=== PATIENT | male | born 1955 | race Caucasian/White ===

== ENCOUNTER 2021-09-17 23:38 | Emergency (ER) | payer BC, OTHER ==
[~2021-09-17] VITALS: Ht 182.9 cm; Wt 122.3 kg
[2021-09-18 01:24] LABS: COLOR,URINE YELLOW (Yellow); GLUCOSE, URINE NEGATIVE (Neg); KETONES,URINE TRACE mg/dl (Neg); LEUKOCYTE ESTERASE ,URINE NEGATIVE (Neg); NITRITES, URINE NEGATIVE (Neg); OCCULT BLOOD,URINE LARGE (Neg); PROTEIN,URINE NEGATIVE (Neg); UROBILINOGEN,URINE 0.2 E.U/dL (0.2-1.0)
[2021-09-18 01:34] LABS: CLARITY,URINE SLIGHTLY CLOUDY (Clear); UA COLLECTION TYPE CLN CATCH MIDSTREAM
[2021-09-18 01:35] LABS: BACTERIA,URINE FEW /HPF (Neg); RBC,URINE 20-50 /HPF (0-2); SQUAMOUS EPITHELIAL CELL,UR FEW /LPF (FEW); WBC,URINE 0-4 /HPF (0-4)
[2021-09-18 01:48] LABS: ALANINE AMINOTRANSFERASE 59 U/L (12-78); ALBUMIN 4.1 G/DL (3.4-5.0); ALBUMIN/GLOBULIN RATIO 1.2 (1.1-1.5); ALKALINE PHOSPHATASE 70 IU/L (46-116); ANION GAP 8 (8-16); ASPARTATE AMINO TRANSFERASE 28 U/L (10-37); BILIRUBIN,TOTAL 0.8 MG/DL (0.1-1.0); BLOOD UREA NITROGEN 23 MG/DL (7-18); BUN/CREATININE RATIO 22.1 (5.4-32.0); CHLORIDE 106 MMOL/L (99-107); CREATININE 1.04 MG/DL (0.60-1.10); GLUCOSE 114 MG/DL (70-104); LIPASE 128 U/L (73-393); SODIUM 139 MMOL/L (135-145); TOTAL PROTEIN 7.6 G/DL (6.4-8.2); eGFR 72 ML/MIN
[2021-09-18 01:52] LABS: BASOPHILS # (AUTO) 0.1 X10'3 (0-0.2); BASOPHILS % (AUTO) 0.8 % (0-1); EOSINOPHILS # (AUTO) 0.2 X10'3 (0-0.9); EOSINOPHILS % (AUTO) 1.7 % (0-6); HEMATOCRIT 44.4 % (42.0-52.0); HEMOGLOBIN 15.7 g/dl (14.0-17.9); LYMPHOCYTES # (AUTO) 1.8 X10'3 (1.1-4.8); LYMPHOCYTES % (AUTO) 17.6 % (21-51); MEAN CORPUSCULAR HEMOGLOBIN 32.8 PG (27.0-31.0); MEAN CORPUSCULAR HGB CONC 35.3 g/dL (33.0-36.5); MEAN PLATELET VOLUME 7.7 FL (7.4-10.4); MONOCYTES # (AUTO) 0.6 X10'3 (0-0.9); MONOCYTES % (AUTO) 5.8 % (2-12); NEUTROPHILS # (AUTO) 7.5 X10'3 (1.8-7.7); NEUTROPHILS % (AUTO) 74.1 % (42-75); PLATELET COUNT 247 X10'3 (140-440); RED BLOOD COUNT 4.78 X10'6 (4.70-6.10); RED CELL DISTRIBUTION WIDTH 13.2 % (11.5-14.5); WHITE BLOOD COUNT 10.2 X10'3 (4.5-11.0)
[2021-09-18 02:08] LABS: CALCIUM 9.2 MG/DL (8.5-10.1)
[2021-09-18] MEDS ORDERED: HYDR-3965 PO (02:26)
[2021-09-18 02:39] VITALS: BP 112/64
== END 2021-09-18 02:41 | disposition home or self-care (01) ==
LOC: ER 23:39
DX: N20.0 Calculus of kidney (principal); R10.84 Generalized abdominal pain; R11.2 Nausea with vomiting, unspecified; G89.29 Other chronic pain; Z88.5 Allergy status to narcotic agent; Z79.899 Other long term (current) drug therapy
CPT/HCPCS: 36415; 74176; 80053; 81001; 83690; 85025; 99284

== ENCOUNTER 2023-12-02 06:43 | Inpatient (IN) | payer MEDICARE ==
[~2023-12-02] VITALS: Ht 185.4 cm; Wt 90.0 kg
[2023-12-02] VITALS (19 sets, daily range): BP systolic 109–147; BP diastolic 51–82; PULSE 78–96; RESP 11–21; TEMP 97.1–99.7; O2SAT 92–100
[2023-12-02] MEDS ORDERED: dexamethasone 4mg tablet PO ONE (06:50)
[2023-12-02] MEDS ORDERED: naproxen 500mg tablet PO ONE (06:50)
[2023-12-02] MEDS ORDERED: diphenhydrAMINE 25mg capsule PO ONE (06:50)
[2023-12-02] MEDS ORDERED: sildenafil citrate 20mg tablet PO SCH (07:05)
[2023-12-02 07:16] LABS: BILIRUBIN,URINE NEGATIVE (Neg); COLOR,URINE YELLOW (Yellow); GLUCOSE, URINE NEGATIVE (Neg); KETONES,URINE 40 mg/dl (Neg); LEUKOCYTE ESTERASE ,URINE NEGATIVE (Neg); NITRITES, URINE NEGATIVE (Neg); OCCULT BLOOD,URINE MODERATE (Neg); PROTEIN,URINE 30 mg/dl (Neg); UROBILINOGEN,URINE 0.2 E.U/dL (0.2-1.0)
[2023-12-02 07:21] LABS: UA COLLECTION TYPE NON-SPECIFIED
[2023-12-02 07:24] LABS: CLARITY,URINE SLIGHTLY CLOUDY (Clear)
[2023-12-02 07:26] LABS: BACTERIA,URINE FEW /HPF (Neg); COARSE GRANULAR CAST 0-3 /LPF (NEGATIVE); HYALINE CASTS 0-3 /LPF (NEGATIVE); MUCUS STRANDS MANY /LPF (Neg); RBC,URINE 20-50 /HPF (0-2); SQUAMOUS EPITHELIAL CELL,UR FEW /LPF (FEW); WBC,URINE 0-4 /HPF (0-4)
[2023-12-02] MEDS: sildenafil citrate 20mg tablet PO ONE (07:34)
[2023-12-02] MEDS: meperidine/PF 25mg/ml syringe IV ONE (07:35)
[2023-12-02] MEDS: normal saline 1000ML IV soln IVB ONE (07:36)
[2023-12-02] MEDS: ondansetron/PF 4mg/2ml inj IV ONE (07:58)
[2023-12-02 08:11] LABS: ALBUMIN 4.6 G/DL (3.4-5.0); ANION GAP 17 (8-16); BLOOD UREA NITROGEN 19 MG/DL (7-18); BUN/CREATININE RATIO 14.8 (10.0-20.0); CALCIUM 10.1 MG/DL (8.5-10.1); CHLORIDE 100 MMOL/L (99-107); CREATININE 1.28 MG/DL (0.60-1.10); GLUCOSE 207 MG/DL (70-104); POTASSIUM 3.6 MMOL/L (3.5-5.1); SODIUM 136 MMOL/L (135-145); TOTAL CARBON DIOXIDE 18.8 MMOL/L (24-32); eCRCL 65 ML/MIN; eGFR 56 ML/MIN
[2023-12-02 08:12] LABS: BASOPHILS % (AUTO) 0.1 % (0-1); EOSINOPHILS % (AUTO) 0 % (0-6); HEMATOCRIT 45.2 % (42.0-52.0); HEMOGLOBIN 15.4 g/dl (14.0-17.9); LYMPHOCYTES # (AUTO) 0.9 X10'3 (1.1-4.8); LYMPHOCYTES % (AUTO) 5.6 % (21-51); MEAN CORPUSCULAR HEMOGLOBIN 31.4 PG (27.0-31.0); MEAN CORPUSCULAR HGB CONC 34.1 g/dL (33.0-36.5); MEAN CORPUSCULAR VOLUME 92.1 FL (78-98); MEAN PLATELET VOLUME 7.4 FL (7.4-10.4); MONOCYTES # (AUTO) 0.8 X10'3 (0-0.9); MONOCYTES % (AUTO) 5.3 % (2-12); PLATELET COUNT 300 X10'3 (140-440); RED CELL DISTRIBUTION WIDTH 13.3 % (11.5-14.5); WHITE BLOOD COUNT 15.7 X10'3 (4.5-11.0)
[2023-12-02] MEDS: meperidine/PF 50mg/ml syringe IV ONE (08:48)
[2023-12-02] MEDS ORDERED: ketorolac trometh. 30mg/ml inj. IV ONE (09:50)
[2023-12-02] MEDS ORDERED: ondansetron/PF 4mg/2ml inj IV PRN ×2 (09:50→12:45)
[2023-12-02] MEDS ORDERED: APIX5TAB3 PO (10:21)
[2023-12-02] MEDS ORDERED: GABA300C PO (10:21)
[2023-12-02] MEDS ORDERED: DULO30CA52 PO (10:21)
[2023-12-02] MEDS: normal saline 1000ml 1,000 ML IV SCH (10:54)
[2023-12-02] MEDS: morphine 2 MG/ML inj. syringe IV PRN (10:54)
[2023-12-02] MEDS ORDERED: morphine 4 MG/ML inj SYRINge IV PRN (12:45)
[2023-12-02] MEDS ORDERED: labetalol 20mg/4ml (5mg/ml) syringe IV PRN (12:45)
[2023-12-02] MEDS ORDERED: fentaNYL/PF 50MCG/1 ML 2ML syringe IV PRN ×2 (12:45)
[2023-12-02] MEDS ORDERED: hydrALAZINE 20mg/ml inj. IV PRN (12:45)
[2023-12-02] MEDS ORDERED: morphine 2 MG/ML inj. syringe IV PRN (12:45)
[2023-12-02] MEDS: iohexol 300 MG/1 ML 50ml polymer ONE (13:09)
[2023-12-02] MEDS ORDERED: desflurane 240ml liquid inh. IH ONE (16:27)
[2023-12-02] MEDS ORDERED: HYDROmorphone 1 mg/ml syringe ONE ×2 (16:35→16:36)
[2023-12-02] MEDS ORDERED: midazolam 1 mg/ML 2ml injection ONE (16:35)
[2023-12-02] MEDS ORDERED: acetaminophen 1,000mg/100ml IV 100 ML IV ONE (16:39)
[2023-12-02] MEDS ORDERED: ondansetron/PF 4mg/2ml inj ONE (16:42)
[2023-12-02] MEDS ORDERED: dexamethasone sod phosphate 4mg/ml inj. ONE (16:42)
[2023-12-02] MEDS ORDERED: LIDOcaine 2% (20mg/ml) 5ml vial ONE (16:43)
[2023-12-02] MEDS ORDERED: propofol inj 20 ML IV ONE (16:43)
[2023-12-02] MEDS ORDERED: ceFAZolin 1000mg inj ONE ×2 (16:45)
[2023-12-02] MEDS ORDERED: phenazopyridine 100mg tablet PO PRN (17:15)
[2023-12-02] MEDS ORDERED: heparin, porcine 5000 units/ml vial SQ SCH (20:00)
[2023-12-02] MEDS: apixaban 5mg tablet PO SCH (20:58)
[2023-12-02] MEDS: gabapentin 300mg capsule PO SCH (20:58)
[2023-12-02] MEDS: tamsulosin 0.4mg capsule PO SCH (20:58)
[2023-12-02] MEDS: docusate sod 100mg capsule PO SCH (20:58)
[2023-12-03] VITALS (7 sets, daily range): BP systolic 96–154; BP diastolic 43–85; PULSE 80–103; RESP 15–20; TEMP 97.9–99.3; O2SAT 96–100
[2023-12-03] MEDS: mag hydrox/Alum hydrox/simeth 30ml oral suspension PO PRN (06:45)
[2023-12-03] MEDS: ringers solution, lacted 1,000 ML IV SCH (06:55)
[2023-12-03] MEDS: duloxetine 30mg CAPSULE.DR PO SCH (07:48)
[2023-12-03] MEDS: acetaminophen 325mg tablet PO PRN (07:49)
[2023-12-03] MEDS: CefTRIAXone/D5W-Rocephin 1gm 50 ML IV SCH (08:00)
[2023-12-03 08:04] LABS: BASOPHILS % (AUTO) 0.1 % (0-1); EOSINOPHILS % (AUTO) 0 % (0-6); HEMOGLOBIN 13.8 g/dl (14.0-17.9); LYMPHOCYTES # (AUTO) 0.9 X10'3 (1.1-4.8); LYMPHOCYTES % (AUTO) 5.1 % (21-51); MEAN CORPUSCULAR HGB CONC 34.4 g/dL (33.0-36.5); MEAN CORPUSCULAR VOLUME 92.9 FL (78-98); MEAN PLATELET VOLUME 7.5 FL (7.4-10.4); MONOCYTES # (AUTO) 1.2 X10'3 (0-0.9); MONOCYTES % (AUTO) 6.7 % (2-12); NEUTROPHILS # (AUTO) 16.3 X10'3 (1.8-7.7); NEUTROPHILS % (AUTO) 88.1 % (42-75); PLATELET COUNT 243 X10'3 (140-440); RED BLOOD COUNT 4.31 X10'6 (4.70-6.10); RED CELL DISTRIBUTION WIDTH 13.7 % (11.5-14.5); WHITE BLOOD COUNT 18.4 X10'3 (4.5-11.0)
[2023-12-03 08:27] LABS: ALANINE AMINOTRANSFERASE 26 U/L (12-78); ALBUMIN/GLOBULIN RATIO 1.1 (1.1-1.5); ALKALINE PHOSPHATASE 57 IU/L (46-116); ANION GAP 8 (8-16); ASPARTATE AMINO TRANSFERASE 31 U/L (10-37); BILIRUBIN,TOTAL 1.5 MG/DL (0.1-1.0); BLOOD UREA NITROGEN 20 MG/DL (7-18); BUN/CREATININE RATIO 23.3 (10.0-20.0); CALCIUM 9.6 MG/DL (8.5-10.1); CHLORIDE 104 MMOL/L (99-107); CREATININE 0.86 MG/DL (0.60-1.10); GLUCOSE 118 MG/DL (70-104); SODIUM 137 MMOL/L (135-145); TOTAL CARBON DIOXIDE 24.6 MMOL/L (24-32); TOTAL PROTEIN 7.6 G/DL (6.4-8.2); eCRCL 97 ML/MIN; eGFR 89 ML/MIN
[2023-12-03] MEDS: HYDROcodone/acetaminophen 5mg/325mg tablet PO PRN (11:42)
[2023-12-03] MEDS: LIDOcaine 5% patch TP SCH (14:54)
[2023-12-03] MEDS: morphine 2 MG/ML inj. syringe IV PRN (17:43)
[2023-12-04 06:00] VITALS: BP 107/71; PULSE 96; RESP 18; TEMP 99.4; O2SAT 97
[2023-12-04 08:00] VITALS: RESP 18; O2SAT 97
[2023-12-04 08:07] LABS: HEMATOCRIT 41.6 % (42.0-52.0); HEMOGLOBIN 14.1 g/dl (14.0-17.9); WHITE BLOOD COUNT 13.8 X10'3 (4.5-11.0)
[2023-12-04 08:08] LABS: BASOPHILS % (AUTO) 0.3 % (0-1); EOSINOPHILS % (AUTO) 0.1 % (0-6); LYMPHOCYTES # (AUTO) 1.6 X10'3 (1.1-4.8); LYMPHOCYTES % (AUTO) 11.7 % (21-51); MEAN CORPUSCULAR HGB CONC 33.8 g/dL (33.0-36.5); MEAN CORPUSCULAR VOLUME 94.6 FL (78-98); MEAN PLATELET VOLUME 7.6 FL (7.4-10.4); MONOCYTES # (AUTO) 1.2 X10'3 (0-0.9); MONOCYTES % (AUTO) 8.6 % (2-12); NEUTROPHILS # (AUTO) 10.9 X10'3 (1.8-7.7); NEUTROPHILS % (AUTO) 79.3 % (42-75); PLATELET COUNT 245 X10'3 (140-440); RED CELL DISTRIBUTION WIDTH 13.6 % (11.5-14.5)
[2023-12-04 08:26] LABS: ALANINE AMINOTRANSFERASE 34 U/L (12-78); ALBUMIN 3.7 G/DL (3.4-5.0); ALBUMIN/GLOBULIN RATIO 1.1 (1.1-1.5); ALKALINE PHOSPHATASE 52 IU/L (46-116); ANION GAP 8 (8-16); ASPARTATE AMINO TRANSFERASE 44 U/L (10-37); BILIRUBIN,TOTAL 1.1 MG/DL (0.1-1.0); BLOOD UREA NITROGEN 14 MG/DL (7-18); BUN/CREATININE RATIO 16.1 (10.0-20.0); CALCIUM 8.8 MG/DL (8.5-10.1); CHLORIDE 105 MMOL/L (99-107); CREATININE 0.87 MG/DL (0.60-1.10); GLUCOSE 118 MG/DL (70-104); POTASSIUM 3.3 MMOL/L (3.5-5.1); SODIUM 140 MMOL/L (135-145); TOTAL CARBON DIOXIDE 27.3 MMOL/L (24-32); TOTAL PROTEIN 7.2 G/DL (6.4-8.2); eCRCL 96 ML/MIN; eGFR 88 ML/MIN
[2023-12-04] MEDS ORDERED: cyclobenzaprine 10mg tablet PO PRN (10:50)
[2023-12-04 11:00] VITALS: BP 110/75; PULSE 84; RESP 16; TEMP 98.2; O2SAT 99
[2023-12-04] MEDS ORDERED: potassium Cl 40MEQ/1/2NS 520ml 520 ML IV PRN (13:00)
[2023-12-04] MEDS ORDERED: potassium Cl 20 mEq SR tablet PO PRN ×2 (13:00)
[2023-12-04] MEDS ORDERED: CIPR-259 PO (15:01)
[2023-12-04] MEDS: cyclobenzaprine 10mg tablet PO PRN (15:32)
[2023-12-04] MEDS ORDERED: K and/or MAG REPLACEMENT MC SCH (20:00)
== END 2023-12-04 16:39 | disposition home or self-care (01) | DRG 661 ==
LOC: ER 06:44 → ED HOLD 09:56 → ORTHO 4S 19:00
PROVIDERS: ADMIT Internal Medicine; ATTEND Internal Medicine
PROC: BT1F1ZZ Fluoroscopy of Left Kidney, Ureter and Bladder using Low Osmolar Contrast (ICD-10-PCS; 2023-12-02)
PROC: 0T778DZ Dilation of Left Ureter with Intraluminal Device, Via Natural or Artificial Opening Endoscopic (ICD-10-PCS; principal; 2023-12-02 16:27)
DX: N13.2 Hydronephrosis with renal and ureteral calculous obstruction (principal); N17.0 Acute kidney failure with tubular necrosis; I48.91 Unspecified atrial fibrillation; G89.29 Other chronic pain; N18.30 Chronic kidney disease, stage 3 unspecified; F32.A Depression, unspecified; D72.829 Elevated white blood cell count, unspecified; N40.1 Benign prostatic hyperplasia with lower urinary tract symptoms; N28.1 Cyst of kidney, acquired; R31.0 Gross hematuria; G62.9 Polyneuropathy, unspecified; M54.9 Dorsalgia, unspecified; F12.90 Cannabis use, unspecified, uncomplicated; M79.7 Fibromyalgia; Z79.899 Other long term (current) drug therapy; Z88.5 Allergy status to narcotic agent; Z79.01 Long term (current) use of anticoagulants; Z87.442 Personal history of urinary calculi
CPT/HCPCS: 36415; 72070; 73030; 73610; 73630; 74176; 76000; 80048; 80053; 81001; 83036; 83735; 85025; 93005; 96374; 96375; 96376; 97116; 97161; 97530; 99285; A4618; A6258; C1758; C1769; C2617; G0378; J0131; J0690; J0696; J1100; J1170; J2175; J2250; J2270; J2405; J2704; J3490; J7030; Q9967

== ENCOUNTER 2023-12-06 02:15 | Emergency (ER) | payer MEDICARE ==
[~2023-12-06] VITALS: Ht 185.4 cm; Wt 90.0 kg
[~2023-12-06 02:15] MED LIST: APIX5TAB3 PO; CIPR-259 PO; DULO30CA52 PO; GABA300C PO
[2023-12-06 02:58] LABS: BASOPHILS # (AUTO) 0.1 X10'3 (0-0.2); BASOPHILS % (AUTO) 0.9 % (0-1); EOSINOPHILS % (AUTO) 0.1 % (0-6); HEMATOCRIT 38.9 % (42.0-52.0); HEMOGLOBIN 13.5 g/dl (14.0-17.9); LYMPHOCYTES % (AUTO) 7.5 % (21-51); MEAN CORPUSCULAR HEMOGLOBIN 32.2 PG (27.0-31.0); MEAN CORPUSCULAR HGB CONC 34.6 g/dL (33.0-36.5); MEAN PLATELET VOLUME 7.5 FL (7.4-10.4); MONOCYTES # (AUTO) 0.9 X10'3 (0-0.9); MONOCYTES % (AUTO) 6.5 % (2-12); NEUTROPHILS # (AUTO) 11.1 X10'3 (1.8-7.7); PLATELET COUNT 281 X10'3 (140-440); RED BLOOD COUNT 4.19 X10'6 (4.70-6.10); RED CELL DISTRIBUTION WIDTH 13.2 % (11.5-14.5); WHITE BLOOD COUNT 13.1 X10'3 (4.5-11.0)
[2023-12-06 03:26] LABS: ALBUMIN 3.5 G/DL (3.4-5.0); ANION GAP 10 (8-16); BLOOD UREA NITROGEN 20 MG/DL (7-18); BUN/CREATININE RATIO 25.3 (10.0-20.0); CALCIUM 8.9 MG/DL (8.5-10.1); CHLORIDE 103 MMOL/L (99-107); CREATININE 0.79 MG/DL (0.60-1.10); GLUCOSE 110 MG/DL (70-104); SODIUM 137 MMOL/L (135-145); TOTAL CARBON DIOXIDE 24.1 MMOL/L (24-32); eCRCL 105 ML/MIN; eGFR > 90 ML/MIN
[2023-12-06 03:28] LABS: APTT 32 SECONDS (22-32); INR 1.1 INR; PROTHROMBIN TIME 11.8 SECONDS (9.0-12.0)
[2023-12-06 03:30] LABS: POTASSIUM 3.8 MMOL/L (3.5-5.1)
[2023-12-06 03:57] LABS: PLATELET ESTIMATE NORMAL; TOTAL CELLS COUNTED 100
[2023-12-06] MEDS ORDERED: mag hydrox/Alum hydrox/simeth 30ml oral suspension PO PRN (06:10)
[2023-12-06] MEDS ORDERED: magnesium hydroxide 30ml (MOM) UD suspension PO PRN (06:10)
[2023-12-06] MEDS ORDERED: acetaminophen 325mg tablet PO PRN (06:10)
[2023-12-06] MEDS ORDERED: magnesium Cl slow-release 64mg tablet PO PRN (06:10)
[2023-12-06] MEDS ORDERED: potassium Cl 40MEQ/1/2NS 520ml 520 ML IV PRN (06:10)
[2023-12-06] MEDS ORDERED: ondansetron/PF 4mg/2ml inj IV PRN (06:10)
[2023-12-06] MEDS ORDERED: magnesium 4gm in 100ml NS 100 ML IV PRN (06:10)
[2023-12-06] MEDS ORDERED: potassium Cl 20 mEq SR tablet PO PRN ×2 (06:10)
[2023-12-06] MEDS ORDERED: magnesium 2GM in 50ml NS 50 ML IV PRN (06:10)
[2023-12-06] MEDS: ciprofloxacin 250mg tablet PO SCH (07:45)
[2023-12-06] MEDS: aspirin 81mg, enteric-coated 1 TAB TABLET.DR PO SCH (07:45)
[2023-12-06] MEDS: normal saline 1000ml 1,000 ML IV SCH (07:46)
[2023-12-06] MEDS: atorvastatin 20mg tablet PO SCH (07:46)
[2023-12-06] MEDS: gabapentin 300mg capsule PO SCH (07:46)
[2023-12-06] MEDS: K and/or MAG REPLACEMENT MC SCH (08:00)
[2023-12-06 08:30] LABS: COLOR,URINE RED (Yellow); UA COLLECTION TYPE STRAIGHT CATH
[2023-12-06 08:31] LABS: CLARITY,URINE Bloody (Clear)
[2023-12-06 08:42] LABS: BACTERIA,URINE FEW /HPF (Neg); RBC,URINE TNTC /HPF (0-2); SQUAMOUS EPITHELIAL CELL,UR NONE SEEN /LPF (FEW); WBC,URINE NONE SEEN /HPF (0-4)
[2023-12-06 08:47] LABS: PHOSPHORUS 5.2 MG/DL (2.3-4.5)
[2023-12-06] MEDS: duloxetine 30mg CAPSULE.DR PO SCH (12:15)
[2023-12-06] MEDS: HYDROcodone/acetaminophen 5mg/325mg tablet PO PRN (12:15)
[2023-12-06] MEDS ORDERED: normal saline 1000ml 1,000 ML IV ONE (19:35)
[2023-12-06] MEDS ORDERED: phenobarbital inj 130 MG in normal saline 100ml IV soln 99 ML IV SCH (20:00)
[2023-12-06 20:29] VITALS: BP 133/81; PULSE 104; RESP 18; TEMP 99.1; O2SAT 97
== END 2023-12-06 20:32 | disposition short-term general hospital (02) ==
LOC: ER 02:15 → ED HOLD 06:14 → UNDOADMIN 06:14 → EDBEDREQ 15:26 → UNDODISIN 20:32
DX: G95.19 Other vascular myelopathies (principal); N17.9 Acute kidney failure, unspecified; G89.29 Other chronic pain; G95.20 Unspecified cord compression; R29.898 Other symptoms and signs involving the musculoskeletal system; I48.91 Unspecified atrial fibrillation; F32.A Depression, unspecified; M50.30 Other cervical disc degeneration, unspecified cervical region; Z87.442 Personal history of urinary calculi; Z88.5 Allergy status to narcotic agent; Z79.899 Other long term (current) drug therapy
CPT/HCPCS: 36415; 70450; 70551; 71045; 72125; 72128; 72131; 72141; 72146; 72148; 72192; 80048; 81001; 82948; 83036; 83735; 84100; 84484; 85007; 85025; 85610; 85730; 86885; 86900; 86901; 93005; 93306; 96360; 96361; 99291; J7030; G0378